=== PATIENT | female | born 1980 | race Caucasian/White ===

== ENCOUNTER 2017-02-24 10:22 | Emergency (ER) | payer OTHER ==
[~2017-02-24] VITALS: Ht 157.5 cm; Wt 83.1 kg
[~2017-02-24 10:22] MED LIST: ADVIL,NUPRIN,M200 MG PO; BACTRIM,SEPT1 TABLET PO; CEFDINIR300 MG PO; CLARITIN,ALAVAR10 MG PO; FOLIC ACID1 MG PO; KEFLEX500 MG PO; LEXAPRO20 MG PO; MACRODANTIN100 MG PO; MEDROL DOSEPAK4 MG PO; NAPROSYN500 MG PO; NEXIUM40 MG PO; PEPCID AC10 MG PO; PRENATAL 19 CH1 EAC1 PO; PRENATAL TABLE1 EAC3 PO; REGLAN10 MG PO; ULTRAM50 MG PO; ZOFRAN ODT4 MG PO
[2017-02-24] MEDS ORDERED: AUGMENTIN875 MG PO (11:05)
[2017-02-24 12:33] VITALS: BP 111/72
== END 2017-02-24 11:44 | disposition home or self-care (01) ==
LOC: EME 10:22
DX: O99.512 Diseases of the respiratory system complicating pregnancy, second trimester (principal); J32.9 Chronic sinusitis, unspecified; Z3A.24 24 weeks gestation of pregnancy; O99.612 Diseases of the digestive system complicating pregnancy, second trimester; K21.9 Gastro-esophageal reflux disease without esophagitis; O99.342 Other mental disorders complicating pregnancy, second trimester; F41.9 Anxiety disorder, unspecified; F32.9 Major depressive disorder, single episode, unspecified; Z88.1 Allergy status to other antibiotic agents
CPT/HCPCS: 99281; 99284

== ENCOUNTER → 2017-03-27 | Outpatient (CLI) | payer OTHER ==
[~2017-03-27] VITALS: Ht 154.9 cm; Wt 84.0 kg
[~2017-03-27] MED LIST changes: +AUGMENTIN875 MG PO; +ZANTAC150 MG PO
[2017-03-27 11:48] VITALS: BP 122/57
== END | disposition home or self-care (01) ==
LOC: IVINF 11:30
DX: Z31.82 Encounter for Rh incompatibility status (principal); Z3A.00 Weeks of gestation of pregnancy not specified; Z67.91 Unspecified blood type, Rh negative
CPT/HCPCS: 96372; J2790

== ENCOUNTER 2017-06-04 07:37 | Inpatient (IN) | payer OTHER ==
[~2017-06-04] VITALS: Ht 157.5 cm; Wt 86.2 kg
[2017-06-04] VITALS (31 sets, daily range): BP systolic 105–146; BP diastolic 52–77
[2017-06-04 09:42] LABS: BASOPHIL (%) 0.4 % (0-1); EOSINOPHIL COUNT 0.1 K/uL (0-0.3); HEMATOCRIT 33.2 % (36.0-46.0); HEMOGLOBIN 10.8 G/DL (11.9-15.5); IMMATURE GRANULOCYTE (%) 1.7 % (0.0-0.7); LYMPHOCYTE (%) 26.9 % (15-42); LYMPHOCYTE COUNT 2.6 K/uL (1.0-2.8); MCH 26.6 PG (29.0-34.0); MCHC 32.5 G/DL (30.0-36.0); MCV 81.8 FL (83-99); MONOCYTE (%) 6.5 % (3-12); MONOCYTE COUNT 0.6 K/uL (0-0.8); NEUTROPHIL (%) 63.5 % (45-76); NEUTROPHIL COUNT 6.2 K/uL (1.8-6.4); PLATELET COUNT 222 K/uL (156-360); RBC DIS.WIDTH-CV 13.5 % (11.8-14.6); RBC DIS.WIDTH-SD 40.3 % (39-53); RED BLOOD COUNT 4.06 M/uL (3.80-5.20); WHITE BLOOD COUNT 9.7 K/uL (4.1-10.2)
[2017-06-05 00:31] VITALS: BP 111/59
[2017-06-05 06:42] LABS: BASOPHIL (%) 0.3 % (0-1); EOSINOPHIL (%) 0.3 % (0-5); HEMATOCRIT 30.2 % (36.0-46.0); HEMOGLOBIN 9.6 G/DL (11.9-15.5); IMMATURE GRANULOCYTE (%) 1.2 % (0.0-0.7); LYMPHOCYTE COUNT 2.4 K/uL (1.0-2.8); MCH 26.2 PG (29.0-34.0); MCHC 31.8 G/DL (30.0-36.0); MCV 82.5 FL (83-99); MONOCYTE (%) 6.9 % (3-12); MONOCYTE COUNT 0.9 K/uL (0-0.8); NEUTROPHIL (%) 72.3 % (45-76); PLATELET COUNT 206 K/uL (156-360); RBC DIS.WIDTH-CV 13.8 % (11.8-14.6); RBC DIS.WIDTH-SD 41.4 % (39-53); RED BLOOD COUNT 3.66 M/uL (3.80-5.20); WHITE BLOOD COUNT 12.5 K/uL (4.1-10.2)
[2017-06-05 07:30] VITALS: BP 97/53
[2017-06-05 14:35] VITALS: BP 111/51
[2017-06-05 23:27] VITALS: BP 111/64
[2017-06-06 08:05] VITALS: BP 124/69
[2017-06-06] MEDS ORDERED: FERROUS GLUCON324 MG PO (10:52)
[2017-06-06] MEDS ORDERED: IBUPROFEN800 MG PO (10:52)
== END 2017-06-06 11:15 | disposition home or self-care (01) | DRG 775 ==
LOC: LDRP-OP 07:37 → 2WEST 07:38 → LDRP-OP 14:33 → 2WEST 21:21 → LDRP-OP 07-12 14:00
PROVIDERS: Advanced Practice Midwife
PROC: 3E033VJ Introduction of Other Hormone into Peripheral Vein, Percutaneous Approach (ICD-10-PCS; principal; 2017-06-04)
PROC: 00HU33Z Insertion of Infusion Device into Spinal Canal, Percutaneous Approach (ICD-10-PCS; principal; 2017-06-04)
PROC: 10907ZC Drainage of Amniotic Fluid, Therapeutic from Products of Conception, Via Natural or Artificial Opening (ICD-10-PCS; principal; 2017-06-04)
PROC: 3E0R3BZ Introduction of Anesthetic Agent into Spinal Canal, Percutaneous Approach (ICD-10-PCS; principal; 2017-06-04)
PROC: 10E0XZZ Delivery of Products of Conception, External Approach (ICD-10-PCS; principal; 2017-06-04)
DX: O76 Abnormality in fetal heart rate and rhythm complicating labor and delivery (principal); O99.214 Obesity complicating childbirth; E66.9 Obesity, unspecified; O09.523 Supervision of elderly multigravida, third trimester; Z3A.39 39 weeks gestation of pregnancy; O99.824 Streptococcus B carrier state complicating childbirth; O99.02 Anemia complicating childbirth; F41.9 Anxiety disorder, unspecified; D62 Acute posthemorrhagic anemia; O99.344 Other mental disorders complicating childbirth; O99.62 Diseases of the digestive system complicating childbirth; Z37.0 Single live birth; K21.9 Gastro-esophageal reflux disease without esophagitis; Z68.39 Body mass index [BMI] 39.0-39.9, adult
CPT/HCPCS: 83030; 85025; 86850; 86900; 86901; C1755; J2274; J2405; J2540; J2590; J2790; J3010; J7120